=== PATIENT | female | born 1945 | race Caucasian/White ===

== ENCOUNTER → 2021-03-06 | Outpatient (CLI) | payer MEDICARE, OTHER ==
--- NOTE | 2021-03-06 09:31 | RAD ---
EXAM: XR KNEE 3 VIEWS 03/06/2021 8:56 AM CLINICAL INDICATION: Chronic knee pain COMPARISON: None TECHNIQUE: 3 views of the right and left knee FINDINGS: Right knee: No acute fracture. Alignment is normal. There is mild tricompartmental joint space narrow ing, small osteophytes and chondrocalcinosis. No significant joint effusion. The bones are deminerali zed. Left knee: No acute fracture. Alignment is normal. There is severe patellofemoral compartment narrowi ng with osteophyte formation. Mild medial greater than lateral compartment narrowing and chondrocalci nosis. No significant joint effusion. The bones are demineralized. IMPRESSION: 1. 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 2. Mild tricompartmental degenerative joint disease of the right knee. Electronically signed by: Yana Santos MD (03/06/2021 9:29 AM) [id number]
== END ==
LOC: RAD 08:46
PROVIDERS: ATTEND Family Medicine
DX: M17.0 Bilateral primary osteoarthritis of knee (principal)
CPT/HCPCS: 73562